=== PATIENT | male | born 1950 | race Caucasian/White ===

== ENCOUNTER 2018-03-07 00:20 | Emergency (ER) | payer SELFPAY ==
--- NOTE | 2018-03-07 00:33 | EDPHY ---
H & P Stated Complaint: Urine retention, last voided at approx 4pm Time Seen by Provider: 03/07/18 00:30 HPI/ROS: HPI: This is a 67-year-old male who presents with Chief Complaint: Urine retention, last voided at approx 4pm Location: Quality: Inability to urinate Duration: Since 4:00 p.m. Signs and Symptoms: no fever, no nausea, no vomiting, no hematemesis, no blood in stool, no abdominal bloating, no diarrhea, + back pain, + burning with urination, no testicular/groin pain, no indigestion, no chest pain, no shortness of breath Timing: Sudden onset Severity: [id number] Context: Patient has a history of urinary retention, presents with sudden onset of inability to urinate started around 4:00 p.m. Accompanied by burning with urination and urinary hesitancy. Patient also complains of low back pain that is nonradiating in nature. Patient reports that this happened in the past and he had a urinary tract infection. Does not take any Flomax or Proscar. No history of kidney stones. Modifying Factors: None Comment: ROS: A comprehensive 10 system review of systems is otherwise negative aside from elements mentioned in the history of present illness. MEDICAL/SURGICAL/SOCIAL HISTORY: Medical history: Vitamin-D deficiency, urinary retention Surgical history: Denies Social history: , former smoker. Family history noncontributory. CONSTITUTIONAL: Mild distress, pacing in room, elderly white male who appears younger than stated age, awake and alert HEENT: Atraumatic and normocephalic, PERRL, EOMI. Nares patent; no rhinorrhea; no nasal mucosal edema. Tympanic membranes clear. Oropharynx clear, no exudate and moist pink mucosa. Airway patent. No lymphadenopathy. No meningismus. Cardiovascular: Normal S1/S2, regular rate, regular rhythm, without murmur rub or gallop. PULMONARY/CHEST: Symmetrical and nontender. Clear to auscultation bilaterally. Good air movement. No accessory muscle usage. ABDOMEN: Soft, nondistended, nontender, no rebound, no guarding, no peritoneal signs, no masses or organomegaly. No CVAT. EXTREMITIES: 2/2 pulses, strength 5/5, no deformities, no clubbing, no cyanosis or edema. NEUROLOGICAL: no focal neuro deficits. GCS 15. SKIN: Warm and dry, no erythema. no rash. Good capillary refill. Source: Patient Exam Limitations: No limitations - Personal History Current Tetanus Diphtheria and Acellular Pertussis (TDAP): Yes - Medical/Surgical History Hx Asthma: No Hx Chronic Respiratory Disease: No Hx Diabetes: No Hx Cardiac Disease: No Hx Renal Disease: No Hx Cirrhosis: No Hx Alcoholism: No Hx HIV/AIDS: No Hx Splenectomy or Spleen Trauma: No Other PMH: urine retention - Social History Smoking Status: Former smoker Constitutional: Initial Vital Signs Temperature (C) 36.6 C 03/07/18 00:21 Heart Rate 82 03/07/18 00:21 Respiratory Rate 16 03/07/18 00:21 Blood Pressure 180/100 H 03/07/18 00:21 Allergies/Adverse Reactions: No Known Allergies Allergy (Unverified 03/07/18 00:27) Home Medications: Medication Instructions Recorded Vitamin D3 03/07/18 Medical Decision Making ED Course/Re-evaluation: Vital Signs reviewed and shows elevated blood pressure most likely due to pain. No systemic signs. Notified by RN that bladder scan shows over 1000 mL. Gil catheter placed by RN. IV access, laboratory studies, urinalysis ordered Patient politely declined any pain medications or antiemetics. Urinalysis shows 3+ blood, 3-5 RBCs, likely due to trauma of fully insertion, no signs of infection 1320: Labs reviewed. No leukocytosis/anemia/platelet dysfunction/acute kidney injury This patient was seen under the supervision of my secondary supervising physician. I evaluated care for this patient independently. Discussed this patient with Dr. Melchor. Differential Diagnosis: Differential diagnosis includes but is not limited to urinary retention, BPH, urinary tract infection, ureterolithiasis, malignancy. - Data Points Laboratory Results: Laboratory Results 03/07/18 00:56 03/07/18 00:56 03/07/18 03/07/18 03/07/18 00:56 00:56 00:53 WBC 7.90 10^3/uL 10^3/uL (3.80-9.50) RBC 5.09 10^6/uL 10^6/uL (4.40-6.38) Hgb 14.9 g/dL g/dL (13.7-17.5) Hct 43.1 % % (40.0-51.0) MCV 84.7 fL fL (81.5-99.8) MCH 29.3 pg pg (27.9-34.1) MCHC 34.6 g/dL g/dL (32.4-36.7) RDW 13.4 % % (11.5-15.2) Plt Count 154 10^3/uL 10^3/uL (150-400) MPV 9.0 fL fL (8.7-11.7) Neut % (Auto) 75.4 % H % (39.3-74.2) Lymph % (Auto) 16.7 % % (15.0-45.0) Glades % (Auto) 6.5 % % (4.5-13.0) Eos % (Auto) 0.5 % L % (0.6-7.6) Baso % (Auto) 0.5 % % (0.3-1.7) Nucleat RBC Rel Count 0.0 % % (0.0-0.2) Absolute Neuts (auto) 5.96 10^3/uL 10^3/uL (1.70-6.50) Absolute Lymphs (auto) 1.32 10^3/uL 10^3/uL (1.00-3.00) Absolute Monos (auto) 0.51 10^3/uL 10^3/uL (0.30-0.80) Absolute Eos (auto) 0.04 10^3/uL 10^3/uL (0.03-0.40) Absolute Basos (auto) 0.04 10^3/uL 10^3/uL (0.02-0.10) Absolute Nucleated RBC 0.00 10^3/uL 10^3/uL (0-0.01) Immature Gran % 0.4 % % (0.0-1.1) Immature Gran # 0.03 10^3/uL 10^3/uL (0.00-0.10) Sodium 140 mEq/L mEq/L (135-145) Potassium 4.2 mEq/L mEq/L (3.3-5.0) Chloride 106 mEq/L mEq/L (97-110) Carbon Dioxide 24 mEq/l mEq/l (22-31) Anion Gap 10 mEq/L mEq/L (6-14) BUN 16 mg/dL mg/dL (7-23) Creatinine 0.9 mg/dL mg/dL (0.7-1.3) Estimated GFR > 60 Glucose 120 mg/dL H mg/dL (70-100) Calcium 9.5 mg/dL mg/dL (8.5-10.4) Urine Color YELLOW Urine Appearance CLEAR Urine pH 6.0 (5.0-7.5) Ur Specific [place] 1.010 (1.002-1.030) Urine Protein NEGATIVE (NEGATIVE) Urine Ketones NEGATIVE (NEGATIVE) Urine Blood 3+ H (NEGATIVE) Urine Nitrate NEGATIVE (NEGATIVE) Urine Bilirubin NEGATIVE (NEGATIVE) Urine Urobilinogen NEGATIVE EU EU (0.2-1.0) Ur Leukocyte Esterase NEGATIVE (NEGATIVE) Urine RBC 3-5 /hpf H /hpf (0-3) Urine WBC 1-3 /hpf /hpf (0-3) Ur Epithelial Cells NONE SEEN /lpf /lpf (NONE-1+) Urine Glucose NEGATIVE (NEGATIVE) Departure - Departure Disposition: Home, Routine, Self-Care Clinical Impression: Urinary retention due to benign prostatic hyperplasia Condition: Good Instructions: Enlarged Prostate (BPH) (ED), Gil Catheter Placement and Care ( ED) Additional Instructions: Please maintain Gil and use leg bag until seen by Urology. Follow-up with Urology in the next 5-7 days. Follow-Up: Please follow-up as noted above. Follow-up sooner if your condition worsens or if you develop any new problems. Call as soon as possible for an appointment. Be clear when you call for an appointment that this is an Emergency Department follow-up. Contact the Emergency Department if you have trouble arranging follow-up care. Our referrals are not based on your insurance network. When time allows, contact your insurance carrier to verify the referral physician is in your plan. If not, get a referral for an in-supervisor network control operators. Referrals: LASHELL MARTIN [Other] - As per Instructions Robinson San MD [Medical Doctor] - As per Instructions
[2018-03-07 01:06] LABS: PLATELET COUNT 154 10^3/uL (150-400)
[2018-03-07 01:28] VITALS: BP 157/91
== END 2018-03-07 01:47 | disposition home or self-care (01) ==
PROC: 0T9B70Z Drainage of Bladder with Drainage Device, Via Natural or Artificial Opening (ICD-10-PCS; principal; 2018-03-07)
DX: N40.1 Benign prostatic hyperplasia with lower urinary tract symptoms (principal); R33.9 Retention of urine, unspecified; Z87.891 Personal history of nicotine dependence